=== PATIENT | male | born 1970 | race Caucasian/White ===

== ENCOUNTER 2022-08-21 07:46 | Outpatient (CLI) | payer MEDICARE, SELFPAY | END 2022-08-21 07:47 | disposition home or self-care (01) | LOC: INJ CL 07:50 | PROVIDERS: PCP Family Medicine; Visit Provider Family Medicine | DX: M43.16 Spondylolisthesis, lumbar region (principal) | CPT/HCPCS: 64483; J1100; Q9966 ==

== ENCOUNTER 2023-01-15 08:34 | Outpatient (CLI) | payer MEDICARE, SELFPAY | END 2023-01-15 08:35 | disposition home or self-care (01) | PROVIDERS: PCP Family Medicine; Visit Provider Family Medicine | DX: M54.16 Radiculopathy, lumbar region (principal); M51.36 Other intervertebral disc degeneration, lumbar region | CPT/HCPCS: 64483; 64484; J1100; Q9966 ==

== ENCOUNTER 2024-02-04 10:01 | Outpatient (CLI) | payer MEDICARE, SELFPAY | END 2024-02-04 10:02 | disposition home or self-care (01) | LOC: INJ CL 10:02 | PROVIDERS: PCP Family Medicine; Visit Provider Family Medicine | DX: M54.16 Radiculopathy, lumbar region (principal); M51.36 Other intervertebral disc degeneration, lumbar region | CPT/HCPCS: 64483; J1100; Q9966 ==

== ENCOUNTER 2024-11-03 14:12 | Outpatient (CLI) | payer MEDICARE, BC, SELFPAY | END 2024-11-03 14:13 | disposition home or self-care (01) | LOC: INJ CL 14:17 | PROVIDERS: PCP Family Medicine; Visit Provider Family Medicine | DX: M54.16 Radiculopathy, lumbar region (principal); M51.369 Other intervertebral disc degeneration, lumbar region without mention of lumbar back pain or lower extremity pain | CPT/HCPCS: 64483; J1100; Q9966 ==

== ENCOUNTER 2025-03-23 07:48 | Outpatient (CLI) | payer MEDICARE, BC, SELFPAY | END 2025-03-23 07:49 | disposition home or self-care (01) | LOC: INJ CL 07:48 | PROVIDERS: PCP Family Medicine; Visit Provider Family Medicine | DX: M54.16 Radiculopathy, lumbar region (principal); M51.369 Other intervertebral disc degeneration, lumbar region without mention of lumbar back pain or lower extremity pain | CPT/HCPCS: 64483; J1100; Q9966 ==